=== PATIENT | female | born 1960 | race Caucasian/White ===

== ENCOUNTER 2023-09-27 09:47 | Inpatient (IN) | payer OTHER ==
[~2023-09-27] VITALS: Ht 154.9 cm; Wt 56.7 kg
[2023-09-27 10:27] LABS: BASOPHILS ABSOLUTE AUTO 0.05 K/mm3 (0.00-0.23); BASOPHILS PERCENT AUTO 0 % (0-2); EOSINOPHILS ABSOLUTE AUTO 0.12 K/mm3 (0.00-0.68); EOSINOPHILS PERCENT AUTO 1 % (0-6); Hematocrit 35.4 % (33.0-51.0); Hemoglobin 11.9 g/dL (11.5-16.0); IMMATURE GRAN ABSOLUTE AUTO 0.07 K/mm3 (0.00-0.10); IMMATURE GRAN PERCENT AUTO 1 % (0-1); LYMPHOCYTES ABSOLUTE AUTO 1.36 K/mm3 (0.84-5.20); LYMPHOCYTES PERCENT AUTO 10 % (21-46); MONOCYTES PERCENT AUTO 8 % (4-13); Mean Corpuscular HGB 31.6 pg (26.0-34.0); Mean Corpuscular HGB Conc 33.6 g/dL (31.5-36.5); Mean Corpuscular Volume 94 fL (80-100); Mean Platelet Volume 10.4 fL (9.1-12.4); NEUTROPHILS ABSOLUTE AUTO 11.64 K/mm3 (1.96-9.15); NEUTROPHILS PERCENT AUTO 81 % (41-73); Platelet Count 251 K/mm3 (150-400); RDW Coefficient Variation 12.7 % (11.7-14.2); Red Blood Cell Count 3.77 M/mm3 (3.80-5.20); White Blood Cell Count 14.34 K/mm3 (4.00-11.30)
[2023-09-27 10:46] LABS: Albumin, Blood 3.8 g/dL (3.4-5.0); Albumin/Globulin Ratio 1.3 (0.8-1.8); Bilirubin, Total 0.3 mg/dL (0.1-1.0); Bun/Creatinine Ratio 8.8 (12.0-20.0); Calcium, Blood 8.2 mg/dL (8.5-10.1); Creatinine, Blood 0.68 mg/dL (0.40-1.00); Potassium, Blood 3.9 mmol/L (3.5-5.5); Total Protein, Blood 6.8 g/dL (6.4-8.2)
[2023-09-27 14:39] VITALS: BP 153/84
[2023-09-27] MEDS ORDERED: VITAMIN D5000 UNIT PO (14:50)
[2023-09-27] MEDS ORDERED: ROSU10TA PO (14:50)
[2023-09-27 18:35] VITALS: BP 153/92
--- NOTE | 2023-09-27 18:58 | NUR ---
SHIFT SUMMARY NEW ADMIT WITH LEFT HIP FX. PT IS A/OX4. VERY PAINFUL WITH MOVEMENT. PT WAS [place] [facility] [place] THE [facility] WITH FAMILY AND HAD SYNCOPAL EPISODE IN THE BATHROOM RESULTING IN FALL AND LEFT HIP FX. PT ON TELE WITH SINUS TACH. DENIES CHEST PAIN. PT SELF REPORTS DRINKING AT LEAST TWO BEERS NIGHTLY. PT PAINFUL WITH SPASMS. CHARGE NURSE CONTACT DR LLAMAS FOR CONSULT AND NEW ORDERS FOR TRACTION, FLEXERIL, AND TRAMADOL. PT LEFT LEG WITH EXTERNAL ROTATION AND SHORTER THAN RT LEG. EDUCATED PT ABOUT S/S OF ALCOHOL WITHDRAWS--INSTRUCTED TO ADVISE IF FEELING ANXIOUS, NASEOUS, SHAKY, OR OTHER CONCERNS.
[2023-09-27 19:23] VITALS: BP 161/95
[2023-09-28] VITALS (21 sets, daily range): BP systolic 145–182; BP diastolic 73–106
--- NOTE | 2023-09-28 05:07 | NUR ---
SUMMARY PT HAS RESPONDED WELL TO ORDERED PAIN MANAGEMENT. PT HAS BEEN ABLE TO SLEEP WELL. PT PT HAS REMAINED NPO SINCE 0000HRS. CALL LIGHT IN REACH.
[2023-09-28 07:28] LABS: BASOPHILS ABSOLUTE AUTO 0.04 K/mm3 (0.00-0.23); BASOPHILS PERCENT AUTO 1 % (0-2); EOSINOPHILS ABSOLUTE AUTO 0.05 K/mm3 (0.00-0.68); EOSINOPHILS PERCENT AUTO 1 % (0-6); Hematocrit 35.3 % (33.0-51.0); Hemoglobin 11.8 g/dL (11.5-16.0); IMMATURE GRAN ABSOLUTE AUTO 0.02 K/mm3 (0.00-0.10); IMMATURE GRAN PERCENT AUTO 0 % (0-1); LYMPHOCYTES ABSOLUTE AUTO 2.08 K/mm3 (0.84-5.20); LYMPHOCYTES PERCENT AUTO 26 % (21-46); MONOCYTES ABSOLUTE AUTO 1.06 K/mm3 (0.16-1.47); MONOCYTES PERCENT AUTO 13 % (4-13); Mean Corpuscular HGB 31.7 pg (26.0-34.0); Mean Corpuscular HGB Conc 33.4 g/dL (31.5-36.5); Mean Corpuscular Volume 95 fL (80-100); Mean Platelet Volume 10.8 fL (9.1-12.4); NEUTROPHILS ABSOLUTE AUTO 4.91 K/mm3 (1.96-9.15); NEUTROPHILS PERCENT AUTO 60 % (41-73); Platelet Count 236 K/mm3 (150-400); RDW Coefficient Variation 12.8 % (11.7-14.2); RDW Standard Deviation 44.3 fL (35.1-46.3); Red Blood Cell Count 3.72 M/mm3 (3.80-5.20); White Blood Cell Count 8.16 K/mm3 (4.00-11.30)
[2023-09-28 07:55] LABS: Bun/Creatinine Ratio 12.8 (12.0-20.0); Calcium, Blood 8.7 mg/dL (8.5-10.1); Creatinine, Blood 0.71 mg/dL (0.40-1.00); Potassium, Blood 4.6 mmol/L (3.5-5.5)
[2023-09-28 08:45] LABS: International Normalized Ratio 0.96; Prothrombin Time Results 10.1 Sec (9.7-11.5)
--- NOTE | 2023-09-28 12:05 | NUR ---
PT ARRIVED TO THE ROOM AT 1200. PT RATES PAIN AT 8/10 BUT RESTS WITH EYES CLOSED. CALL LIGHT WITHIN REACH. VSS EXCEPT BP IS ELEVATED.
--- NOTE | 2023-09-28 16:58 | NUR ---
HYPERTENSION PT'S BP HAS BEEN ELEVATED POST-OP. DR. UNÑEZ NOTIFIED AND IV LABETOLOL WAS ORDERED. IV LABETOLOL WAS HELD SINCE SBP DROPPED BELOW 160.
--- NOTE | 2023-09-28 17:29 | NUR ---
SHIFT SUMMARY PT CURRENTLY IN OR. PT'S HR HAS BEEN ELEVATED T/O THE DAY AFIB WITH RVR VS AFLUTTER. PT SHORT OF BREATH WITH ACTIVITY. FFP GIVEN PRE OP. AWAITING RETURN FROM OR.
[2023-09-29 03:13] VITALS: BP 158/82
[2023-09-29 04:13] LABS: BASOPHILS PERCENT AUTO 0 % (0-2); EOSINOPHILS ABSOLUTE AUTO 0.01 K/mm3 (0.00-0.68); EOSINOPHILS PERCENT AUTO 0 % (0-6); Hemoglobin 10.8 g/dL (11.5-16.0); IMMATURE GRAN ABSOLUTE AUTO 0.02 K/mm3 (0.00-0.10); IMMATURE GRAN PERCENT AUTO 0 % (0-1); LYMPHOCYTES ABSOLUTE AUTO 1.27 K/mm3 (0.84-5.20); LYMPHOCYTES PERCENT AUTO 15 % (21-46); MONOCYTES ABSOLUTE AUTO 1.31 K/mm3 (0.16-1.47); MONOCYTES PERCENT AUTO 15 % (4-13); Mean Corpuscular HGB Conc 33.8 g/dL (31.5-36.5); Mean Corpuscular Volume 95 fL (80-100); Mean Platelet Volume 11.1 fL (9.1-12.4); NEUTROPHILS ABSOLUTE AUTO 6.13 K/mm3 (1.96-9.15); NEUTROPHILS PERCENT AUTO 70 % (41-73); Platelet Count 185 K/mm3 (150-400); RDW Coefficient Variation 12.5 % (11.7-14.2); RDW Standard Deviation 43.6 fL (35.1-46.3); Red Blood Cell Count 3.38 M/mm3 (3.80-5.20); White Blood Cell Count 8.74 K/mm3 (4.00-11.30)
[2023-09-29 04:30] LABS: Albumin, Blood 3.3 g/dL (3.4-5.0); Anion Gap 7 mmol/L (6-16); Blood Urea Nitrogen 7 mg/dL (8-24); Bun/Creatinine Ratio 10.1 (12.0-20.0); CO2, Blood 26 mmol/L (21-32); Calcium, Blood 8.4 mg/dL (8.5-10.1); Chloride, Blood 99 mmol/L (98-108); Creatinine, Blood 0.69 mg/dL (0.40-1.00); Glomerular Filtration Rate 97 (60-); Glucose, Blood 105 mg/dL (70-99); Phosphorus, Blood 2.7 mg/dL (2.5-4.9); Potassium, Blood 4.2 mmol/L (3.5-5.5); Sodium, Blood 132 mmol/L (136-145)
--- NOTE | 2023-09-29 05:31 | NUR ---
SUMMARY PT HAS HAD MINIMAL DISCOMFORT. PT MEDICATED ONCE FOR DISCOMFORT. PT HAS BEEN UP TO VOID. PT HAS AMBULATED WITH FWW AND GB. PT TOLERATED WALK WELL. PT HAS BEEN SLEEPING WELL THROUGHOUT SHIFT. NO ISSUES WITH CIWA. CALL LIGHT IN REACH.
[2023-09-29 07:52] VITALS: BP 148/76
[2023-09-29] MEDS ORDERED: Acetaminophen325 M1 PO (13:02)
[2023-09-29] MEDS ORDERED: TRAM50 PO (13:02)
--- NOTE | 2023-09-29 15:05 | NUR ---
DISCHARGE/ SHIFT SUMMARY PT D/C AT APPROXIMATELY 1430 VIA WC TO POV. AND SON ACCOMPANIED PT. PT'S PAIN MANAGED PER EMR, LUNG SOUNDS CTA BILATERALLY, AFEBRILE, BREATHING EVEN AND UNLABORED. IV D/C'D AND INTACT.
--- NOTE | 2023-09-29 16:38 | NUR ---
DISCHARGE SUMMARY PO1 L HIP PINNING, A/OX4, VSS, TOLERATING PO, PAIN WELL MANAGED, AMBULATING WELL, VOIDING WELL. DRESSING CHANGED PRIOR TO DC PER [facility]THO ORDER, PT PROVIDED ADDITIONAL DRESSINGS THEY ARE GOING HOME TO [place] AND WILL FOLLOW UP WITH ORTHO IN ONE MONTH ORDERED. DISUSSED DISCHARGE INFORMATION INCLUDING HOME CARE, MEDICATIONS, AND FOLLOW UP APPOINTMENTS. NO QUESTIONS AT THIS TIME, IV ACCESS REMOVED PRIOR TO DISCHARGE. PT ESCORTED OUT VIA WC TO PRIVATE AUTO TO GO HOME.
== END 2023-09-29 13:57 | disposition home health service (06) | DRG 481 ==
LOC: ER 09:47 → SURS 12:43
PROVIDERS: Orthopaedic Surgery; Student in an Organized Health Care Education/Training Program; ADMIT Family Medicine
PROC: 0QH734Z Insertion of Internal Fixation Device into Left Upper Femur, Percutaneous Approach (ICD-10-PCS; principal; 2023-09-28 09:00)
DX: S72.142A Displaced intertrochanteric fracture of left femur, initial encounter for closed fracture (principal); E87.1 Hypo-osmolality and hyponatremia; E78.5 Hyperlipidemia, unspecified; F10.10 Alcohol abuse, uncomplicated; I10 Essential (primary) hypertension; M35.00 Sjogren syndrome, unspecified; D72.829 Elevated white blood cell count, unspecified; W18.30XA Fall on same level, unspecified, initial encounter; Y92.59 Other trade areas as the place of occurrence of the external cause; E86.0 Dehydration; Z88.5 Allergy status to narcotic agent; Z87.891 Personal history of nicotine dependence
CPT/HCPCS: 36415; 71046; 72170; 80048; 80053; 80069; 83735; 84484; 85025; 85610; 93005; 93010; 94762; 96361; 96374; 97110; 97110-CQ; 97116-CQ; 97162; 97530; 99285-25; A9270; C1713; J0690; J2250; J2371; J2405; J2704; J3010; J7030; J7050